=== PATIENT | female | born 1950 | race Caucasian/White ===

== ENCOUNTER 2023-08-13 10:29 | Day surgery (SDC) | payer MEDICARE ==
[~2023-08-13] VITALS: Ht 162.6 cm; Wt 61.9 kg
[~2023-08-13 10:29] MED LIST: Atropine Sulfate 0.1 MG/ML 10ML SYR ONE; DOXE10 PO; Glycopyrrolate 0.2 MG/ML 1MLVIAL ONE; Lactated Ringer's 1,000 ML IV ONE; Lidocaine 2% 5 ML SDV ONE; Lidocaine HCl/Pf 1% 5 ML VIAL ONE; Methylene Blue 1% 100 MG/10 ML VIAL ONE; Ondansetron HCl 2 MG / ML 2ML Vial ONE; VOLTAREN ARTHRI20 GM; ePHEDrine Sulfate 50 MG/ML 1ML Injection ONE; propofoL 50 ML IV ONE
[2023-08-13] MEDS ORDERED: Calcium Acetat667 MG (10:56)
[2023-08-13] MEDS ORDERED: MULVITA (10:56)
[2023-08-13] MEDS ORDERED: Vitamin D1000 UNI1 (10:57)
[2023-08-13] MEDS ORDERED: TURMERIC500 M2 (10:58)
[2023-08-13] MEDS ORDERED: TOCO1000 (10:58)
[2023-08-13] MEDS ORDERED: Lactated Ringer's 1,000 ML IV ONE (11:12)
[2023-08-13 12:28] VITALS: BP 102/62
== END 2023-08-13 12:23 | disposition home or self-care (01) ==
LOC: ORSCSDS 10:29
PROVIDERS: Internal Medicine Gastroenterology
PROC: 0DBN8ZX Excision of Sigmoid Colon, Via Natural or Artificial Opening Endoscopic, Diagnostic (ICD-10-PCS; principal; 2023-08-13 12:15)
PROC: 0DBL8ZX Excision of Transverse Colon, Via Natural or Artificial Opening Endoscopic, Diagnostic (ICD-10-PCS; principal; 2023-08-13 12:15)
DX: Z12.11 Encounter for screening for malignant neoplasm of colon (principal); Z86.010 Personal history of colon polyps; D12.3 Benign neoplasm of transverse colon; K63.5 Polyp of colon; K57.30 Diverticulosis of large intestine without perforation or abscess without bleeding; K64.4 Residual hemorrhoidal skin tags; Z80.0 Family history of malignant neoplasm of digestive organs; Z79.899 Other long term (current) drug therapy
CPT/HCPCS: 88305; J0461; J2001; J2405; J2704; J7120; Q9968